=== PATIENT | female | born 1935 | race Caucasian/White ===

== ENCOUNTER 2017-10-13 08:00 | Outpatient (CLI) | payer MEDICARE, OTHER | END 2017-10-13 08:01 | disposition home or self-care (01) | LOC: BICMAMMO 08:00 | PROVIDERS: ATTEND Obstetrics & Gynecology | DX: Z12.31 Encounter for screening mammogram for malignant neoplasm of breast (principal) | CPT/HCPCS: 77063; G0202; 77067 ==

== ENCOUNTER 2017-10-18 10:04 | Outpatient (CLI) | payer MEDICARE, OTHER ==
[2017-10-18] MEDS ORDERED: Iopamidol 370 76% 100 ML VIAL ONE (11:47)
--- NOTE | 2017-10-18 13:34 | CT ---
CT ABDOMEN AND PELVIS WITH IV AND ORAL CONTRAST: History: Left lower quadrant pain. Comparison: 09-08-07 FINDINGS: Mild atelectasis is present at the lung bases. The gallbladder is surgically absent with associated d istention of the biliary system. Cysts arise from the cortex of each kidney. There are prominent dege nerative changes of the lumbar spine. Calcifications are apparent throughout the arterial structures. No evidence of bowel obstruction. Urinary bladder is incompletely distended. Diverticula arise from the colon without adjacent inflammation. IMPRESSION: 1. Mild diverticulosis. No evidence of diverticulitis. 2. Atherosclerosis. 3. Status post cholecystectomy. POS: [facility]
== END 2017-10-18 10:05 | disposition home or self-care (01) ==
LOC: CT 10:04
PROVIDERS: ATTEND Internal Medicine Gastroenterology
DX: K58.1 Irritable bowel syndrome with constipation (principal); K86.2 Cyst of pancreas; R10.9 Unspecified abdominal pain; K57.30 Diverticulosis of large intestine without perforation or abscess without bleeding; I70.90 Unspecified atherosclerosis; Z90.49 Acquired absence of other specified parts of digestive tract
CPT/HCPCS: 74177

== ENCOUNTER 2018-04-19 09:00 | Outpatient (CLI) | payer MEDICARE, OTHER | END 2018-04-19 09:01 | disposition home or self-care (01) | LOC: CP 09:00 | PROVIDERS: ATTEND Internal Medicine | DX: R06.09 Other forms of dyspnea (principal); J44.9 Chronic obstructive pulmonary disease, unspecified | CPT/HCPCS: 94060; 94729 ==

== ENCOUNTER 2018-09-25 04:59 | Observation (INO) | payer MEDICARE, OTHER ==
[2018-09-25 06:21] LABS: Troponin I 0.022 ng/mL (< 0.028)
[2018-09-25] MEDS ORDERED: Acetaminophen 325 MG TAB ONE ×2 (08:40→14:57)
[2018-09-25] MEDS ORDERED: Nitroglycerin 0.4 MG TAB (25 Tab Bottle) SL PRN (08:47)
[2018-09-25] MEDS ORDERED: Diabetic Tussin 200 MG/10 ML UDCUP PO PRN (08:47)
[2018-09-25] MEDS ORDERED: Bisacodyl 10 MG SUPP PR PRN (08:47)
[2018-09-25] MEDS ORDERED: Ondansetron ODT 4 MG TAB PO PRN (08:47)
[2018-09-25] MEDS ORDERED: Sodium Chloride 0.65% Nasal 44 ML BOT EA NARE PRN (08:47)
[2018-09-25] MEDS ORDERED: Zolpidem Tartrate 5 MG TAB PO PRN (08:47)
[2018-09-25] MEDS ORDERED: Cepastat Lozenges 1 LOZ PO PRN (08:47)
[2018-09-25] MEDS ORDERED: Ondansetron PF 4 MG/2 ML Vial IVP PRN (08:47)
[2018-09-25] MEDS ORDERED: Loperamide HCl 2 MG CAP PO PRN (08:47)
[2018-09-25] MEDS ORDERED: Artificial Tears 18 DROP/0.9 ML EA EYE PRN (08:47)
[2018-09-25] MEDS ORDERED: Eucerin (Mineral Oil/Petrolatum,White) 30 gm Jar TOP PRN (08:47)
[2018-09-25] MEDS ORDERED: Calcium Carbonate 500 MG ChewTAB PO PRN (08:47)
[2018-09-25] MEDS ORDERED: Senokot S 8.6-50 MG TAB PO PRN (08:47)
[2018-09-25] MEDS ORDERED: hydrALAZINE 20 MG/ML VIAL SLOW IVP PRN (08:47)
[2018-09-25] MEDS ORDERED: Lisinopril 2.5 MG TAB PO SCH (09:00)
[2018-09-25 09:18] LABS: Troponin I 0.017 ng/mL (< 0.028)
[2018-09-25] MEDS ORDERED: Primidone 250 MG TAB PO SCH (10:15)
[2018-09-25] MEDS ORDERED: Fenofibrate Nanocrystallized 145 MG TAB PO SCH (10:15)
[2018-09-25] MEDS ORDERED: Lisinopril 5 MG TAB PO SCH (10:15)
[2018-09-25] MEDS ORDERED: Enoxaparin Sodium 30 MG/0.3 ML SYRINGE ONE (12:10)
--- NOTE | 2018-09-25 12:16 | HP ---
PRIMARY CARE PHYSICIAN: Mikaela Caraballo. REASON FOR ADMISSION: Transfer from [facility] for congestive heart failure exacerb ation. HISTORY OF PRESENT ILLNESS: An 83-year-old female who has underlying history of obstructive lung dis ease as well as atrial fibrillation with pacemaker/AICD who presented to [facility] with increasing shortness of breath. For last 3 days, he was having orthopnea. She denies any lower extremity pitting edema. She denies any fever, chills, UTI symptoms. She denies any chest pain, bu t she was feeling mild palpitation with exertion. She was feeling dizziness at home. All these symp toms were not improving at home and it was getting worse and that is [facility] At [facility], the patient had EKG which showed pacemak er rhythm. Chest x-ray showed some congestive heart failure. She was given Lasix and DuoNeb therapy and subsequently, she was transferred to our hospital for further evaluation. This patient reports that she never had any recent echocardiography done. She denies any UTI symptoms. She denies any constipation, diarrhea, melena, hematochezia. She denie s any abdominal pain. REVIEW OF SYSTEMS: The following complete review of systems was negative, unless otherwise mentioned in the HPI or below: Constitutional: Weight loss or gain, ability to conduct usual activities. Skin: Rash, itching. Eyes: Double vision, pain. ENT/Mouth: Nose bleeding, neck stiffness, pain, tenderness. Cardiovascular: Palpitations, dyspnea on exertion, orthopnea. Respiratory: Shortness of breath, wheezing, cough, hemoptysis, fever or night sweats. Gastrointestinal: Poor appetite, abdominal pain, heartburn, nausea, vomiting, constipation, or diarr hea. Genitourinary: Urgency, frequency, dysuria, nocturia. Musculoskeletal: Pain, swelling. Neurologic/Psychiatric: Anxiety, depression. Allergy/Immunologic: Skin rash, bleeding tendency. Please see my HPI for pertinent positive and negative. All other review of system reviewed and negat malcolm except as mentioned in the HPI. PAST MEDICAL HISTORY: Dyslipidemia, hypertension, paroxysmal atrial fibrillation, history of pacemak er/AICD, essential tremor. PAST SURGICAL HISTORY: Appendicectomy, pacemaker/defibrillator placement, cholecystectomy, tonsillec cezra, surgical treatment for kidney stone. PAST PSYCHIATRIC HISTORY: Reviewed and negative. FAMILY HISTORY: No family history of coronary artery disease, stroke, or cancer. ALLERGIES: CODEINE, the patient is not tolerating those medications. CURRENT HOME MEDICATIONS: Aspirin 81 mg p.o. daily, calcium with vitamin D 1 tablet p.o. daily, Core g 6.25 mg p.o. b.i.d., TriCor 145 mg p.o. daily, multivitamin 1 tablet p.o. daily, lisinopril 5 mg p. o. b.i.d., Lovaza 1 g p.o. daily, omeprazole 20 mg p.o. daily, primidone 50 mg p.o. b.i.d., vitamin B complex 1 capsule daily. EMERGENCY ROOM COURSE: The patient was given Lasix 40 mg and DuoNeb therapy at [facility]. SOCIAL HISTORY: Patient lives at home. No history of tobacco, alcohol or illicit drug abuse. PHYSICAL EXAMINATION: VITAL SIGNS: Currently, blood pressure 177/88, pulse 74, respiratory rate 22, temperature 97.9, satu ration 98% on 2 L oxygen, weight 47.6 kilograms. GENERAL: Patient is currently alert, awake, no obvious acute distress. HEENT: Normocephalic, atraumatic. Eyes: Pupils round, reactive to light. Extraocular muscle intac t. ENT: Oropharynx within normal limits. Moist mucous membrane, no oral lesion, no pharyngeal erythema , no exudate. NECK: Supple, no obvious JVD noted. No carotid bruit. LUNGS: Few end-expiratory wheezing heard. Basal rales noted. CARDIAC: S1, S2 regular without any significant murmur. ABDOMEN: Soft and benign without any tenderness. No peritoneal sign, no suprapubic tenderness. No organomegaly, no mass. BACK: Unremarkable, no CVA tenderness. EXTREMITIES: Upper extremity, passive movement of all joints are normal. Lower extremities, no jermaine a. Good distal pulsations. No calf tenderness. SKIN: No skin rash. HEMATOLOGICAL: No lymphadenopathy. PSYCHIATRIC: Normal affect. SIGNIFICANT LABORATORY DATA: EKG showing pacemaker rhythm. Chest x-ray done at the [facility] showed pulmonary vascular congestion. CBC: WBC 7.3, hemoglobin 12.2, platelet 220. BMP : Sodium 140, potassium 4.3, chloride 104, carbon dioxide 26, BUN 38, creatinine 1.38, glucose 119, calcium 9.8. LFT: AST 28, ALT 14, alkaline phosphatase 55, albumin 4.5. Cardiac enzymes negative x 3. BNP 1376. Digoxin level 0.15. ASSESSMENT AND PLAN: 1. Acute congestive heart failure. Patient's clinical presentation, dyspnea on exertion, orthopnea, and elevated BNP and pulmonary vascular congestion supportive of congestive heart failure. Patient already had pulmonary function test in the recent past which showed obstructive and restrictive patte rn. She might have underlying component of lung as well but mainly currently explained by congestive heart failure. To determine type of congestive heart failure, we will obtain echocardiography to as sess ejection fraction and other structural abnormality. Meanwhile, we will continue with Lasix 20 m g IV b.i.d. We will start Coreg 3.125 mg p.o. b.i.d., lisinopril 2.5 mg p.o. daily. Once we verify the patient's home medication, then we will resume her home medication. We will monitor electrolytes , renal function, weight, input and output chart. Heart failure education given. 2. Obstructive lung disease/chronic obstructive pulmonary disease asthma. The patient will be given DuoNeb therapy every 6 hourly and Dulera two puff inhalation b.i.d. 3. Benign essential tremor. Continue Primidone 50 mg p.o. b.i.d. 4. Dyslipidemia. Check lipid profile tomorrow and continue TriCor 145 mg p.o. daily after confirmat ion of dose. 5. Gastroesophageal reflux disease. Continue Pepcid 20 mg p.o. daily 6. Chronic kidney disease stage 3. We will monitor renal function. 7. Mild protein calorie malnutrition. The patient will be given nutritional supplement with Ensure b.i.d. 8. Deep venous thrombosis prophylaxis. Lovenox 30 mg subcutaneously daily. 9. Gastrointestinal prophylaxis, Pepcid 20 mg daily. CODE STATUS: The patient is FULL CODE. The patient does not have any surrogate decision maker. DISPOSITION PLAN: Based on clinical course. Most likely within 24 hours, the patient will be able t o go home on stable home medications. We will repeat labs tomorrow and cardiac rehabilitation will b e consulted.
[2018-09-25] MEDS ORDERED: Famotidine 20 MG TAB ONE (12:38)
[2018-09-25] MEDS ORDERED: Primidone 50 MG TAB PO SCH (12:45)
[2018-09-25 15:42] VITALS: BMI 20.4
[2018-09-25] MEDS: Carvedilol 3.125 MG TAB PO SCH ×2 (17:45→21:16)
[2018-09-25] MEDS: Aspirin 325 MG TAB PO SCH (17:45)
[2018-09-25] MEDS: Famotidine 20 MG TAB PO SCH (17:46)
[2018-09-25] MEDS: Enoxaparin Sodium 30 MG/0.3 ML SYRINGE SC SCH (17:46)
[2018-09-25] MEDS: Furosemide 20 MG/2 ML VIAL SLOW IVP SCH (17:52)
[2018-09-25] MEDS ORDERED: Lorazepam 0.5 MG TAB PO PRN (19:15)
[2018-09-25] MEDS: Mometasone/Formoterol 120 PUFF INHALER INH SCH (20:19)
[2018-09-25] MEDS ORDERED: Prevnar 13-Val Conj/PF 0.5 ML SYRINGE IM ONE (21:00)
[2018-09-25] MEDS: Acetaminophen 325 MG TAB PO PRN (21:03)
[2018-09-25] MEDS: Lisinopril 10 MG TAB PO SCH (21:16)
[2018-09-26 04:55] LABS: ALT (SGPT) 12 U/L (8-55); AST (SGOT) 25 U/L (5-34); Albumin 4.3 g/dL (3.4-4.8); Alkaline Phosphatase 46 U/L (40-150); Anion Gap 12 mmol/L (10-20); BUN (Urea Nitrogen) 33 mg/dL (9.8-20.1); Bilirubin, Total 0.6 mg/dL (0.2-1.2); Calc. Creatinine Clearance 24 mL/min (70-130); Calcium 9.5 mg/dL (7.8-10.44); Carbon Dioxide 30 mmol/L (23-31); Chloride 101 mmol/L (98-107); Estimated GFR-MDRD 42; Globulin 2.5 g/dL (2.4-3.5); Glucose 82 mg/dL (83-110); Magnesium 2.2 mg/dL (1.6-2.6); Potassium 3.3 mmol/L (3.5-5.1); Protein, Total 6.8 g/dL (6.0-8.3); Sodium 140 mmol/L (136-145); Uric Acid 8.7 mg/dL (2.6-6.0)
[2018-09-26 04:57] LABS: Band 3 % (5-11); Eosinophils 9 % (0-10); Hemoglobin 12.9 g/dL (12.0-16.0); Lymphocytes 31 % (21-51); MDiff Complete? YES; Mean Corpuscular HGB CONC 33.6 g/dL (32.0-36.0); Mean Corpuscular Hemoglobin 32.1 pg (27.0-31.0); Mean Corpuscular Volume 95.5 fL (78.0-98.0); Mean Platelet Volume 9.6 fL (7.4-10.4); Monocytes 14 % (0-10); Neutrophil 43 % (42-75); Platelet Count 217 thou/uL (130-400); RBC Distribution Width 12.1 % (11.5-14.5); Red Blood Cell (RBC) Count 4.02 mill/uL (4.20-5.40); White Blood Cell (WBC) Count 4.8 thou/uL (4.8-10.8)
[2018-09-26] MEDS: Furosemide 20 MG/2 ML VIAL SLOW IVP SCH ×2 (06:42→13:35)
[2018-09-26] MEDS: Mometasone/Formoterol 120 PUFF INHALER INH SCH (08:07)
[2018-09-26] MEDS: Enoxaparin Sodium 30 MG/0.3 ML SYRINGE SC SCH (08:33)
[2018-09-26] MEDS: Aspirin 325 MG TAB PO SCH (08:33)
[2018-09-26] MEDS: Lisinopril 10 MG TAB PO SCH (08:33)
[2018-09-26] MEDS: Carvedilol 3.125 MG TAB PO SCH (08:33)
[2018-09-26] MEDS: Famotidine 20 MG TAB PO SCH (08:35)
[2018-09-26] MEDS ORDERED: Carvedilol 3.125 MG TAB PO SCH (10:15)
[2018-09-26] MEDS: Acetaminophen 325 MG TAB PO PRN (13:35)
[2018-09-26 15:51] VITALS: BP 133/70; TEMP 98
--- NOTE | 2018-09-27 06:02 | DIS ---
DATE OF ADMISSION: 09/25/2018 DATE OF DISCHARGE: 09/26/2018 DISCHARGE DIAGNOSES: 1. Acute congestive heart failure with combined systolic and diastolic dysfunction. 2. Cardiomyopathy with an ejection fraction of 35% to 40%. 3. Piwfvfkb-ca-ploxdz aortic regurgitation. 4. Jaumgfio-yy-kydpog mitral regurgitation. 5. Chronic obstructive pulmonary disease. 6. History of benign essential tremor. 7. History of dyslipidemia. 8. History of reflux. 9. History of chronic kidney disease, stage 3. 10. History of mild protein-calorie malnutrition. 11. History of atrial fibrillation with pacemaker and automatic implantable cardioverter defibrillator placement. PROCEDURE: Echocardiogram revealing estimated EF at 35% to 40%, diastolic dysfunction, pacer wires visualized in the right ventricle, moderate dilatation of the left atrium, iydixacz-wr-grnyua mitral regurgitation, vrxhjsil-vu-xktgkd aortic regurgitation. HISTORY OF PRESENT ILLNESS: The patient is an 83-year-old followed by Dr. Dorsey and Mikaela Caraballo PA-C. The patient was transferred from the [facility] with shortness of breath symptoms. Chest x-ray initially showed some congestive heart failure with pulmonary edema. She was given Lasix. She was also given DuoNeb for COPD and subsequently transferred to our facility. The patient was diagnosed with likely congestive heart failure. HOSPITAL COURSE: The patient was placed on observation. She was given Lasix 20 mg IV b.i.d. She was resumed on PAOLO inhibitors and beta-blockers. The patient had substantial improvement with a brief round of diuresis. I talked to her obgyn hospitalist physician, Dr. Dorsey. He recalled that this patient had significant aortic valvular disease, but has not been interested in pursuing any aggressive interventions. With our discussion, the patient was felt to be stable for discharge to home. PHYSICAL EXAMINATION: VITAL SIGNS: On the day of discharge, temperature was 98.0, pulse 74, respirations 20, O2 saturation 95% on room air, and blood pressure 133/70. GENERAL APPEARANCE: Age-appropriate female, awake, alert, in no distress. HEART: Regular without murmurs. LUNGS: Clear to auscultation bilaterally. ABDOMEN: Soft, nontender, and nondistended. EXTREMITIES: Warm and dry without edema. LABORATORY DATA: Notable labs on the day of discharge include a creatinine of 1.22, uric acid slightly elevated at 8.7. DISPOSITION: The patient was discharged to home. ACTIVITIES: As tolerated. DIET: She will be on a heart-healthy, low-sodium diet which I discussed with the patient at length. DISCHARGE MEDICATIONS: She also will be on Lasix 20 mg every other day and she will continue with her usual home medications to include; 1. Carvedilol 6.25 mg p.o. b.i.d. 2. Aspirin 81 mg p.o. at bedtime. 3. Daily vitamin. 4. Vitamin B complex. 5. Fenofibrate 145 mg daily. 6. Campbell-3 fatty acids in the form of Lovaza 1 g p.o. daily. 7. Lisinopril 10 mg b.i.d. 8. Primidone 50 mg b.i.d. 9. Calcium with vitamin D 1 p.o. daily. 10. Omeprazole 20 mg daily. FOLLOWUP: She is to follow up with Mikaela Caraballo PA-C, in [place] and Dr. Dorsey on 10/03/2018 at 8:45 in the morning. She needs to have a BMP obtained at that time to ensure her electrolytes remain stable given her newly added diuretic and her chronic kidney disease. The patient is to return to the emergency department should she have any problems prior to the time of followup. Job ID: [id number]
--- NOTE | 2018-09-30 14:27 | EKG ---
Test Reason : Blood Pressure : / mmHG Vent. Rate : 073 BPM Atrial Rate : 073 BPM P-R Int : 102 ms QRS Dur : 146 ms QT Int : 444 ms P-R-T Axes : 102 -70 106 degrees QTc Int : 489 ms Electronic ventricular pacemaker Confirmed by STEPHENIE KOROMA MD ([id number]), design editor KATY PATEL ([id number]) on 09/30/2018 2:27:12 PM Referred By: Confirmed By:STEPHENIE KOROMA MD
== END 2018-09-26 16:51 | disposition home or self-care (01) ==
LOC: ERS 04:59 → ERHOLD 05:32 → 2SW 15:34
PROVIDERS: ADMIT Hospitalist; ATTEND Hospitalist
DX: I13.0 Hypertensive heart and chronic kidney disease with heart failure and stage 1 through stage 4 chronic kidney disease, or unspecified chronic kidney disease (principal); N18.3 Chronic kidney disease, stage 3 (moderate); I50.41 Acute combined systolic (congestive) and diastolic (congestive) heart failure; J44.9 Chronic obstructive pulmonary disease, unspecified; I48.0 Paroxysmal atrial fibrillation; G25.0 Essential tremor; E78.5 Hyperlipidemia, unspecified; K21.9 Gastro-esophageal reflux disease without esophagitis; I08.0 Rheumatic disorders of both mitral and aortic valves; E44.1 Mild protein-calorie malnutrition; Z68.20 Body mass index [BMI] 20.0-20.9, adult; Z79.82 Long term (current) use of aspirin; Z79.899 Other long term (current) drug therapy; Z88.5 Allergy status to narcotic agent; Z95.810 Presence of automatic (implantable) cardiac defibrillator
CPT/HCPCS: 82962 ×2; 83735; 83880; 84484; 84550; 90670; 93005; 93306; 93798; 94640 ×4; 94664; 96372 ×2; 96374; 96376; 99285; G0009; G0378 ×2; 36415; 36416; 80053; 84443; 85025; 90471; J1650; J1940; J7620

== ENCOUNTER 2019-01-16 09:34 | Outpatient (CLI) | payer MEDICARE, OTHER ==
--- NOTE | 2019-01-16 11:09 | ULT ---
RENAL ULTRASOUND WITH DOPPLER: DATE: 01/16/2019. PROVIDED CLINICAL HISTORY: Chronic kidney disease. FINDINGS: The right kidney measures about 8.8 x 3.8 x 3.6 cm and demonstrates no evidence for hydronephrosis or solid mass. Simple-appearing cysts are seen, the largest of which measures about 1.6 cm. Left kidney measures about 8.9 x 4.2 x 4.2 cm and demonstrates no evidence for hydronephrosis or richard d mass. Simple-appearing cysts are seen, the largest of which measures about 2.9 cm. Color Doppler and spectral analysis of the abdominal aorta, right and left main renal arteries, and a rcuate renal arteries was performed bilaterally. There is no elevation of the renal artery peak syst olic velocity to aortic peak systolic velocity ratio to suggest renal artery stenosis. The main ivana l artery waveforms appear normal. The resistive indices within the arcuate systems bilaterally are n ormal. The urinary bladder appears sonographically unremarkable. IMPRESSION: 1. No evidence for hydronephrosis. 2. No sonographic evidence for renal artery stenosis. POS: OFF
== END 2019-01-16 09:35 | disposition home or self-care (01) ==
LOC: BICULT 09:34
PROVIDERS: ATTEND Internal Medicine Nephrology
DX: N18.3 Chronic kidney disease, stage 3 (moderate) (principal)
CPT/HCPCS: 76700; 76770

== ENCOUNTER 2019-04-07 14:00 | Observation (INO) | payer MEDICARE, OTHER ==
[2019-04-07] MEDS ORDERED: Acetaminophen 325 MG TAB PO PRN ×2 (15:14→17:41)
[2019-04-07] MEDS ORDERED: Ondansetron PF 4 MG/2 ML Vial IVP PRN ×2 (15:14→17:41)
[2019-04-07] MEDS ORDERED: Ondansetron ODT 4 MG TAB SL PRN (15:14)
[2019-04-07] MEDS ORDERED: Acetaminophen 325 MG TAB ONE ×2 (15:45)
[2019-04-07 16:14] LABS: Troponin I 0.049 ng/mL (< 0.028)
--- NOTE | 2019-04-07 16:20 | HP ---
PRIMARY CARE PHYSICIAN: Mikaela Caraballo. PRIMARY DB2 DBA: Dr. Dorsey. REASON FOR ADMISSION: Transferred from [facility] for chest pain. HISTORY OF PRESENT ILLNESS: An 83-year-old female, who has underlying history of systolic and diastolic heart failure, who initially presented at [place] [facility] with complaint of chest pain. The patient reports that this morning she was perfect early normal, she was going to [place], [place]. She was having difficulty riding truck. She was finally made to seat on the backside of seat, her son was driving. After 5 minutes of driving, the patient experienced left-sided chest pain, sharp, pressure-like sensation, radiation to left arm, 7/10 in intensity. She also felt shoulder pain lasted for about 30 to 45 minutes. The patient felt nausea, but no vomiting. She did not have any associated diaphoresis or shortness of breath. Subsequently, the patient's son took her to [facility], but when they reached there at that time, her pain eased up and eventuality subsided and never came back. She denies any relation of chest pain with food, respiration, or activity. She is able to do every day routine activity without any shortness of breath or chest pain. She denies any fever or chills. She denies any hemoptysis. She denies any immobilization, calf tenderness, or lower extremity edema. The patient is doing her routine activity at slow pace without any problem. When she reached to [facility], she was hypertensive. At [facility], routine blood test was unremarkable. She was given nitroglycerin patch, aspirin, and Ringer lactate IV fluid. EKG showed pacemaker rhythm. Subsequently, this patient was transferred to our emergency room for evaluation. The patient is currently asymptomatic. She had bad experience with previous stress test. She does not want to go for stress test if not needed. She denies any constipation, diarrhea, melena, hematochezia, or abdominal pain. REVIEW OF SYSTEMS: CONSTITUTIONAL: Negative for weight loss or gain, ability to conduct usual activities. SKIN: Negative for rash, itching. EYES: Negative for double vision, pain. ENT/MOUTH: Negative for nose bleeding, neck stiffness, pain, tenderness. CARDIOVASCULAR: Negative for palpitations, dyspnea on exertion, orthopnea. RESPIRATORY: Negative for shortness of breath, wheezing, cough, hemoptysis, fever or night sweats. GASTROINTESTINAL: Negative for poor appetite, abdominal pain, heartburn, nausea, vomiting, constipation, or diarrhea. GENITOURINARY: Negative for urgency, frequency, dysuria, nocturia. MUSCULOSKELETAL: Negative for pain, swelling. NEUROLOGIC/PSYCHIATRIC: Negative for anxiety, depression. ALLERGY/IMMUNOLOGIC: Negative for skin rash, bleeding tendency. Please see my HPI for pertinent positives and negatives. All other review of systems reviewed and negative except as mentioned in HPI. PAST MEDICAL HISTORY: Chronic systolic and diastolic heart failure, hypertension, paroxysmal atrial fibrillation, dyslipidemia, history of pacemaker/AICD, benign essential tremor. PAST SURGICAL HISTORY: Pacemaker/defibrillator placement, appendicectomy, cholecystectomy, tonsillectomy, surgical treatment for kidney stones. PAST PSYCHIATRIC HISTORY: Reviewed and negative. FAMILY HISTORY: No strong family history of premature coronary artery disease, stroke, or cancer. ALLERGIES: CODEINE. THE PATIENT IS NOT TOLERATING THIS MEDICATION. EMERGENCY ROOM COURSE: The patient is given Ringer lactate, aspirin, and nitro patch at [facility]. SOCIAL HISTORY: The patient lives at home. No history of tobacco, alcohol, or illicit drug abuse. CURRENT HOME MEDICATIONS: 1. Aspirin 81 mg p.o. at bedtime. 2. Calcium with vitamin D one tablet daily. 3. Coreg 6.25 mg p.o. b.i.d. 4. Tricor 145 mg p.o. daily. 5. Folic acid with multivitamin one tablet daily. 6. Lisinopril 10 mg b.i.d. 7. Omeprazole 20 mg daily. 8. Primidone 50 mg b.i.d. 9. Lasix 20 mg p.o. daily. 10. Fish oil one capsule daily. PHYSICAL EXAMINATION: VITAL SIGNS: On arrival and currently blood pressure 153/90, pulse 70, respiratory rate 18, temperature 98.7, saturation 95% on room air. Weight 44.9 kg. GENERAL: The patient is currently alert, awake, in no obvious acute distress. HEENT: Head; normocephalic and atraumatic. Eyes; pupils round, reactive to light. Extraocular muscle intact. ENT; oropharynx within normal limits. Moist mucous membranes. No oral lesion. No pharyngeal erythema. No exudate. NECK: Supple. No JVD. No thyromegaly. No carotid bruit. No jugular venous distention. LUNGS: Clear to auscultation without any rhonchi or rales. CARDIAC: S1 and S2 appears regular without any significant murmur. ABDOMEN: Soft, bowel sounds present. Nontender. Nondistended. No organomegaly. No mass. No suprapubic tenderness. BACK: Unremarkable. No CVA tenderness. EXTREMITIES: Upper extremity, passive movement of all joints are normal. Lower extremity, no edema. Good distal pulsation. No calf tenderness. SKIN: No skin rash. HEMATOLOGICAL: No lymphadenopathy. NEUROLOGIC: Nonfocal examination. SIGNIFICANT LABORATORY DATA: CBC; WBC 6.1, hemoglobin 12.2, platelet 286, D-dimer 0.70. BMP; sodium 141, potassium 5.1, chloride 103, carbon dioxide 25, anion gap 18, BUN 33, creatinine 1.04, glucose 96, calcium 10.0. LFT; AST 66, ALT 27, alkaline phosphatase 118, albumin 4.4. Troponin I 0.016, lipase 50. EKG showing pacemaker rhythm. Chest x-ray based on my review. No acute cardiopulmonary process. ASSESSMENT/PLAN: 1. Chest pain. The patient's chest pain description is atypical. Her EKG is showing pacemaker rhythm, so inconclusive. Her troponin is negative. At this point given acute onset of chest pain, we will keep this patient in hospital for observation and we will do serial cardiac enzyme. Per the patient's request, if cardiac enzymes are negative then she does not want to go for any kind of stress testing, rather she will prefer outpatient followup with Dr. Dorsey. We will check lipid profile tomorrow. Meanwhile, we will continue with aspirin 325 mg p.o. daily, nitroglycerin patch q.8 hourly. The patient already had recent echocardiography done, so no need of repeat echocardiography during this admission. 2. Chronic systolic and diastolic heart failure. The patient is currently euvolemic. Her chest x-ray is clean. Her examination is normal and her recent echocardiography was in August 2018. The patient is already on optimum medical therapy with Coreg and lisinopril as well as low dose of Lasix. 3. Dyslipidemia. We will check lipid profile and continue with Tricor 145 mg p.o. at bedtime and fish oil 1 gram daily. 4. Benign essential tremor. We will continue Protonix 40 mg p.o. daily. 5. Benign essential tremor. We will continue primidone 50 mg p.o. b.i.d. 6. Deep venous thrombosis prophylaxis not needed, because we are expecting discharge in 24 hours. 7. Gastrointestinal prophylaxis, Protonix 40 mg p.o. daily. CODE STATUS: The patient is full code. The patient's son is surrogate decision maker. DISPOSITION PLAN: Based on clinical course. If the patient's subsequent troponin are abnormal, then they will consider Cardiology consultation while in hospital. Plan of care extensively discussed with the patient in detail in the emergency room. Job ID: [id number]
[2019-04-07 17:18] VITALS: BMI 22.1
[2019-04-07] MEDS ORDERED: Loperamide HCl 2 MG CAP PO PRN (17:41)
[2019-04-07] MEDS ORDERED: hydrALAZINE 20 MG/ML VIAL SLOW IVP PRN (17:41)
[2019-04-07] MEDS ORDERED: Diabetic Tussin 200 MG/10 ML UDCUP PO PRN (17:41)
[2019-04-07] MEDS ORDERED: Senokot S 8.6-50 MG TAB PO PRN (17:41)
[2019-04-07] MEDS ORDERED: Sodium Chloride 0.65% Nasal 44 ML BOT EA NARE PRN (17:41)
[2019-04-07] MEDS ORDERED: Ondansetron ODT 4 MG TAB PO PRN (17:41)
[2019-04-07] MEDS ORDERED: Loratadine 10 MG TAB PO PRN (17:41)
[2019-04-07] MEDS ORDERED: Zolpidem Tartrate 5 MG TAB PO PRN (17:41)
[2019-04-07] MEDS ORDERED: Calcium Carbonate 500 MG ChewTAB PO PRN (17:41)
[2019-04-07] MEDS ORDERED: Bisacodyl 10 MG SUPP PR PRN (17:41)
[2019-04-07] MEDS ORDERED: Artificial Tears 18 DROP/0.9 ML EA EYE PRN (17:41)
[2019-04-07] MEDS ORDERED: Nitroglycerin 0.4 MG TAB (25 Tab Bottle) SL PRN (17:41)
[2019-04-07] MEDS ORDERED: Carvedilol 6.25 MG TAB PO SCH (18:30)
[2019-04-07 19:11] LABS: Troponin I 0.079 ng/mL (< 0.028)
[2019-04-07] MEDS: Lisinopril 10 MG TAB PO SCH (19:54)
[2019-04-07] MEDS: Primidone 50 MG TAB PO SCH (19:54)
[2019-04-07] MEDS: Nitroglycerin 2% Ointment 1 INCH/1 GM Packet TOP SCH (21:15)
[2019-04-08 05:45] LABS: #Basophils 0.1 thou/uL (0.0-0.2); #Eosinphils 0.4 thou/uL (0.0-0.7); #Lymphocytes 1.4 thou/uL (1.20-3.40); #Monocytes 0.8 thou/uL (0.11-0.59); #Neutrophils 2.7 thou/uL (1.40-6.50); %Basophils 1.4 % (0.0-1.0); %Eosinophils 6.8 % (0.0-10.0); %Lymphocytes 26.8 % (21.0-51.0); %Monocytes 14.2 % (0.0-10.0); %Neutrophils 50.8 % (42.0-75.0); Hemoglobin 11.7 g/dL (12.0-16.0); Mean Corpuscular HGB CONC 33.6 g/dL (32.0-36.0); Mean Corpuscular Hemoglobin 32.4 pg (27.0-31.0); Mean Corpuscular Volume 96.4 fL (78.0-98.0); Mean Platelet Volume 8.9 fL (7.4-10.4); Platelet Count 265 thou/uL (130-400); RBC Distribution Width 12.1 % (11.5-14.5); Red Blood Cell (RBC) Count 3.62 mill/uL (4.20-5.40); White Blood Cell (WBC) Count 5.4 thou/uL (4.8-10.8)
[2019-04-08 06:00] LABS: Anion Gap 13 mmol/L (10-20); BUN (Urea Nitrogen) 28 mg/dL (9.8-20.1); Calc. Creatinine Clearance 37 mL/min (70-130); Calcium 9.6 mg/dL (7.8-10.44); Carbon Dioxide 25 mmol/L (23-31); Cardiac Risk 3.7 (Less than 4.5); Chloride 104 mmol/L (98-107); Cholesterol 209 mg/dl (< 200 Desired); Estimated GFR-MDRD 61; Glucose 83 mg/dL (83-110); HDL Cholesterol 56 mg/dL (>60 Neg Risk); LDL Cholesterol, Calculated 114 mg/dL; Potassium 3.8 mmol/L (3.5-5.1); Sodium 138 mmol/L (136-145); Triglycerides 196 mg/dL (Less than 150)
[2019-04-08 06:05] LABS: Troponin I 0.056 ng/mL (< 0.028)
[2019-04-08] MEDS: Nitroglycerin 2% Ointment 1 INCH/1 GM Packet TOP SCH (06:32)
[2019-04-08] MEDS ORDERED: Carvedilol 6.25 MG TAB PO SCH (08:00)
[2019-04-08] MEDS: Primidone 50 MG TAB PO SCH (08:47)
[2019-04-08] MEDS: Lisinopril 10 MG TAB PO SCH (08:48)
[2019-04-08] MEDS ORDERED: Folic Acid 1 MG TAB PO SCH (09:00)
[2019-04-08] MEDS ORDERED: Fenofibrate Nanocrystallized 145 MG TAB PO SCH (09:00)
[2019-04-08] MEDS ORDERED: Multivitamin W/ Minerals 1 TAB PO SCH (09:00)
[2019-04-08] MEDS ORDERED: Furosemide 20 MG TAB PO SCH (09:00)
[2019-04-08] MEDS ORDERED: Aspirin 325 mg Enteric Coated Tablet PO SCH (09:00)
[2019-04-08] MEDS ORDERED: Fish Oil 1,000 MG CAP PO SCH (09:00)
[2019-04-08 11:29] VITALS: BP 132/63; TEMP 98.4
--- NOTE | 2019-04-08 23:59 | DIS ---
DATE OF ADMISSION: 04/07/2019 DATE OF DISCHARGE: 04/08/2019 CHIEF COMPLAINT ON ADMISSION: Chest pain. FINAL DIAGNOSES: 1. Chest pain, secondary to demand ischemia in the setting of accelerated hypertension, peak troponin 0.079. 2. History of dilated cardiomyopathy, status post [employer] biventricular ICD, no occlusive coronary artery disease noted per recent left heart catheterization 2016. 3. Hypertension, with much better control after medication titration this hospitalization. 4. Benign essential tremor. 5. Mixed hyperlipidemia. BRIEF HOSPITAL COURSE: The patient is a very pleasant 83-year-old female with past medical history significant for chronic systolic and diastolic heart failure, managed by Dr. Dorsey, and no history of coronary artery disease, confirmed by left heart catheterization 2016, who presented with an episode of chest pain radiating up into the left arm and shoulder. The patient had been shopping with her son and had just climbing into the backseat of her son's truck. They were going to [place] to shop. After approximately 5 minutes of driving, the patient did begin experiencing chest pain located on the left side of her chest which she describes as pressure with radiation to the left arm. She rated the pain as 7/ 10, and the left shoulder and arm pain lasted about 30 minutes. By the time they arrived to the [facility], her chest pain had resolved. The patient was markedly hypertensive on arrival with systolic blood pressure 200s. She was transferred to our facility for higher level of care. On arrival to our ER, her blood pressure was 180. She was admitted for chest pain rule out. Her serial troponin was 0.016, 0.049, 0.079, and 0.056 respectively. Her carvedilol was increased from 3.125 to 6.25 b.i.d. and her lisinopril was increased from 5 mg daily to 10 mg p.o. b.i.d. Her blood pressure has trended down nicely with readings now in the 130 systolic. She has had no further chest discomfort. She has ambulated the halls without issue. Interrogation of her ICD revealed no arrhythmias or therapies given. DISCHARGE DISPOSITION: Home. DISCHARGE CONDITION: Stable. FOLLOWUP AND DISCHARGE INSTRUCTIONS: The patient will follow up with her primary grain loader, Dr. Dorsey. She will continue to monitor her blood pressure at home. In addition to her new prescriptions for increased doses of carvedilol and lisinopril, she will also be given prescription for sublingual nitroglycerin. Stress test was offered to the patient but in light of her normal left heart catheterization in 2016, this will be deferred. The patient stated that she does not desire any further stress test in any case. The care of this patient was discussed with Dr. Barbosa. She will be discharged in good condition today with followup scheduled with Dr. Dorsey, as well as her primary care physician. Job ID: [id number] [id number]
== END 2019-04-08 13:24 | disposition home or self-care (01) ==
LOC: ERS 14:00 → 2SW 16:33
PROVIDERS: ADMIT Internal Medicine; ATTEND Internal Medicine
DX: I24.8 Other forms of acute ischemic heart disease (principal); I11.0 Hypertensive heart disease with heart failure; I50.42 Chronic combined systolic (congestive) and diastolic (congestive) heart failure; I48.0 Paroxysmal atrial fibrillation; G25.0 Essential tremor; I42.0 Dilated cardiomyopathy; E78.2 Mixed hyperlipidemia; Z79.82 Long term (current) use of aspirin; Z79.899 Other long term (current) drug therapy; Z88.5 Allergy status to narcotic agent; Z95.810 Presence of automatic (implantable) cardiac defibrillator
CPT/HCPCS: 80048; 80061; 84484 ×2; 85025; 99285; G0378 ×2; 36415

== ENCOUNTER 2021-01-29 12:00 | Outpatient (CLI) | payer MEDICARE, OTHER | END 2021-01-29 12:01 | disposition home or self-care (01) | LOC: BICULT 12:00 | PROVIDERS: ATTEND Internal Medicine Nephrology | DX: N18.30 Chronic kidney disease, stage 3 unspecified (principal); N28.1 Cyst of kidney, acquired | CPT/HCPCS: 76770 ==

== ENCOUNTER 2021-06-27 17:22 | Inpatient (IN) | payer MEDICARE, OTHER ==
[2021-06-27 19:25] VITALS: BMI 19.8
[2021-06-27] MEDS ORDERED: Ondansetron ODT 4 MG TAB PO PRN (20:01)
[2021-06-27] MEDS ORDERED: Ondansetron PF 4 MG/2 ML Vial IVP PRN (20:01)
[2021-06-27] MEDS ORDERED: Melatonin 3 MG TAB PO PRN (20:04)
[2021-06-27] MEDS ORDERED: Aspirin Chewable 81 MG TAB PO SCH (20:15)
[2021-06-27] MEDS: hydrALAZINE 20 MG/ML VIAL SLOW IVP PRN (22:14)
[2021-06-27] MEDS ORDERED: Sodium Chloride 0.9% 1,000 ML IV SCH (22:15)
[2021-06-27 23:31] LABS: Troponin I 0.043 ng/mL (< 0.028)
[2021-06-28] MEDS: Acetaminophen 325 MG TAB PO PRN ×2 (00:39→08:28)
[2021-06-28 05:27] LABS: Mean Corpuscular HGB CONC 34.3 g/dL (32.0-36.0); Mean Corpuscular Hemoglobin 33.7 pg (27.0-31.0); Mean Corpuscular Volume 98.1 fL (78.0-98.0); Mean Platelet Volume 9.6 fL (7.4-10.4); Platelet Count 232 thou/uL (130-400); RBC Distribution Width 11.7 % (11.5-14.5); Red Blood Cell (RBC) Count 2.98 mill/uL (4.20-5.40); White Blood Cell (WBC) Count 4.7 thou/uL (4.8-10.8)
[2021-06-28 05:39] LABS: Anion Gap 14 mmol/L (10-20); BUN (Urea Nitrogen) 50 mg/dL (9.8-20.1); Calc. Creatinine Clearance 19 mL/min (70-130); Calcium 8.9 mg/dL (7.8-10.44); Carbon Dioxide 25 mmol/L (23-31); Chloride 104 mmol/L (98-107); Glucose 99 mg/dL (83-110); Potassium 3.7 mmol/L (3.5-5.1); Sodium 139 mmol/L (136-145)
[2021-06-28] MEDS ORDERED: Nitroglycerin 0.4 MG TAB (25 Tab Bottle) ONE (06:26)
[2021-06-28] MEDS ORDERED: Nitroglycerin 0.4 MG TAB (25 Tab Bottle) SL PRN (06:45)
[2021-06-28] MEDS: Aspirin Chewable 81 MG TAB PO SCH (08:28)
[2021-06-28] MEDS: Heparin 5,000 UNITS/ML VIAL SC SCH ×2 (08:29→20:44)
[2021-06-28] MEDS ORDERED: Enoxaparin Sodium 30 MG/0.3 ML SYRINGE SC SCH (09:00)
[2021-06-28] MEDS: hydrALAZINE 20 MG/ML VIAL SLOW IVP PRN (09:02)
[2021-06-28 09:23] LABS: Eosinophils 13 % (0-10); Lymphocytes 20 % (21-51); MDiff Complete? YES; Monocytes 12 % (0-10); Neutrophil 51 % (42-75); Platelet Morphology Comment Appears Adequate; Reactive Lymphocytes 4 % (0-10)
[2021-06-28] MEDS ORDERED: traMADol HCl 50 MG TAB PO PRN ×2 (10:06→14:10)
[2021-06-28] MEDS ORDERED: cloNIDine 0.1 MG TAB PO PRN (10:10)
[2021-06-28] MEDS ORDERED: Carvedilol 6.25 MG TAB PO SCH (10:15)
[2021-06-28] MEDS ORDERED: cloNIDine 0.1 MG TAB PO SCH (10:15)
[2021-06-28 10:53] LABS: Troponin I 0.041 ng/mL (< 0.028)
[2021-06-28] MEDS ORDERED: Fentanyl 100 MCG/2 ML VIAL SLOW IVP SCH (11:45)
[2021-06-28 13:41] LABS: Troponin I 0.032 ng/mL (< 0.028)
[2021-06-28] MEDS ORDERED: Fentanyl 100 MCG/2 ML VIAL SLOW IVP PRN (14:35)
[2021-06-28] MEDS: Isosorbide Dinitrate 5 MG TAB PO SCH ×2 (16:01→20:45)
[2021-06-28] MEDS: Primidone 50 MG TAB PO SCH ×2 (16:01→20:52)
[2021-06-28] MEDS: hydrALAZINE 25 MG TAB PO SCH ×2 (16:01→20:45)
[2021-06-28] MEDS: Carvedilol 6.25 MG TAB PO SCH (16:09)
[2021-06-28] MEDS: cloNIDine 0.1 MG TAB PO SCH (20:45)
[2021-06-29] MEDS: Aspirin Chewable 81 MG TAB PO SCH (08:06)
[2021-06-29] MEDS: cloNIDine 0.1 MG TAB PO SCH (08:06)
[2021-06-29] MEDS: Isosorbide Dinitrate 5 MG TAB PO SCH ×2 (08:06→14:56)
[2021-06-29] MEDS: hydrALAZINE 25 MG TAB PO SCH ×2 (08:07→14:56)
[2021-06-29] MEDS: Heparin 5,000 UNITS/ML VIAL SC SCH (08:07)
[2021-06-29] MEDS: Carvedilol 6.25 MG TAB PO SCH ×3 (08:07→09:39)
[2021-06-29] MEDS: Primidone 50 MG TAB PO SCH ×2 (08:14→14:57)
[2021-06-29] MEDS ORDERED: cloNIDine 0.2 MG TAB PO SCH (09:00)
[2021-06-29] MEDS ORDERED: Multivitamin W/ Minerals 1 TAB PO SCH (09:00)
[2021-06-29] MEDS ORDERED: Fenofibrate Nanocrystallized 145 MG TAB PO SCH (09:00)
[2021-06-29] MEDS ORDERED: cloNIDine 0.3 MG TAB PO SCH ×2 (09:00→21:00)
[2021-06-29] MEDS: Acetaminophen 325 MG TAB PO SCH ×2 (09:39→14:56)
[2021-06-29 11:52] VITALS: TEMP 98.3
[2021-06-29 14:58] VITALS: BP 166/72
[2021-06-29] MEDS ORDERED: Carvedilol 25 MG TAB PO SCH (17:00)
== END 2021-06-29 15:10 | disposition home or self-care (01) | DRG 315 ==
LOC: 2NO 19:03 → OBSVTOIN 06-29 11:53
PROVIDERS: ADMIT Family Medicine; ATTEND Internal Medicine
DX: I95.9 Hypotension, unspecified (principal); I13.0 Hypertensive heart and chronic kidney disease with heart failure and stage 1 through stage 4 chronic kidney disease, or unspecified chronic kidney disease; I50.22 Chronic systolic (congestive) heart failure; N17.9 Acute kidney failure, unspecified; I42.8 Other cardiomyopathies; E44.0 Moderate protein-calorie malnutrition; Z68.1 Body mass index [BMI] 19.9 or less, adult; E78.5 Hyperlipidemia, unspecified; J39.2 Other diseases of pharynx; G89.29 Other chronic pain; I35.1 Nonrheumatic aortic (valve) insufficiency; M54.9 Dorsalgia, unspecified; N18.30 Chronic kidney disease, stage 3 unspecified; Z20.822 Contact with and (suspected) exposure to COVID-19; R07.9 Chest pain, unspecified; I48.0 Paroxysmal atrial fibrillation; Z95.810 Presence of automatic (implantable) cardiac defibrillator; Z88.5 Allergy status to narcotic agent; Z79.82 Long term (current) use of aspirin; Z90.49 Acquired absence of other specified parts of digestive tract; Z90.89 Acquired absence of other organs
CPT/HCPCS: 36415; 36416; 74019; 80048; 83735; 84484; 85025; 93005; 93010; 93306; 96374; 96375; 96376; G0378; J0360; J1644; J3010; J7050

== ENCOUNTER 2021-12-02 18:01 | Inpatient (IN) | payer MEDICARE, OTHER ==
[2021-12-02 18:50] LABS: #Eosinphils 0.2 thou/uL (0.0-0.7); #Lymphocytes 0.9 thou/uL (1.20-3.40); #Monocytes 1.1 thou/uL (0.11-0.59); #Neutrophils 6.2 thou/uL (1.40-6.50); %Basophils 0.5 % (0.0-1.0); %Lymphocytes 10.9 % (21.0-51.0); %Monocytes 13.2 % (0.0-10.0); %Neutrophils 73.4 % (42.0-75.0); Hemoglobin 9.8 g/dL (12.0-16.0); Mean Corpuscular Volume 97.2 fL (78.0-98.0); Mean Platelet Volume 8.5 fL (7.4-10.4); Platelet Count 257 thou/uL (130-400); RBC Distribution Width 12.4 % (11.5-14.5); Red Blood Cell (RBC) Count 2.98 mill/uL (4.20-5.40); White Blood Cell (WBC) Count 8.4 thou/uL (4.8-10.8)
[2021-12-02 19:10] LABS: ALT (SGPT) 13 U/L (8-55); AST (SGOT) 36 U/L (5-34); Anion Gap 16 mmol/L (10-20); BUN (Urea Nitrogen) 39 mg/dL (9.8-20.1); Bilirubin, Total 0.5 mg/dL (0.2-1.2); Calc. Creatinine Clearance 0 mL/min (70-130); Calcium 9.3 mg/dL (7.8-10.44); Carbon Dioxide 23 mmol/L (23-31); Chloride 105 mmol/L (98-107); Globulin 3.1 g/dL (2.4-3.5); Glucose 99 mg/dL (83-110); Potassium 4.8 mmol/L (3.5-5.1); Protein, Total 7.1 g/dL (5.8-8.1); Sodium 139 mmol/L (136-145)
[2021-12-02 19:33] LABS: CKMB 2.1 ng/mL (0-6.6)
[2021-12-02 19:43] LABS: Alkaline Phosphatase 73 U/L (40-110)
[2021-12-02] MEDS ORDERED: Benzonatate 100 MG CAP PO SCH (20:45)
[2021-12-02] MEDS ORDERED: Ondansetron ODT 4 MG TAB PO PRN (22:00)
[2021-12-02] MEDS ORDERED: Ondansetron PF 4 MG/2 ML Vial IVP PRN (22:00)
[2021-12-02] MEDS ORDERED: Acetaminophen 650 MG Suppository PR PRN (22:00)
[2021-12-02] MEDS ORDERED: Furosemide 40 MG/4 ML VIAL SLOW IVP SCH (22:15)
[2021-12-02] MEDS ORDERED: Erythromycin Base 0.5% Oint 1 GM TUBE R EYE SCH (22:22)
[2021-12-02 22:33] LABS: Troponin I 0.047 ng/mL (< 0.028)
[2021-12-02] MEDS ORDERED: methylPREDNISolone Sod Succ 40 MG VIAL IVP SCH (22:45)
[2021-12-03 01:24] LABS: Troponin I 0.057 ng/mL (< 0.028)
[2021-12-03] MEDS: Acetaminophen 325 MG TAB PO PRN ×2 (03:40→21:02)
[2021-12-03 05:21] LABS: #Lymphocytes 0.6 thou/uL (1.20-3.40); #Monocytes 0.8 thou/uL (0.11-0.59); #Neutrophils 5.8 thou/uL (1.40-6.50); %Basophils 0.1 % (0.0-1.0); %Eosinophils 0.2 % (0.0-10.0); %Lymphocytes 8.2 % (21.0-51.0); %Monocytes 11.3 % (0.0-10.0); %Neutrophils 80.1 % (42.0-75.0); Hemoglobin 9.4 g/dL (12.0-16.0); Mean Corpuscular HGB CONC 33.6 g/dL (32.0-36.0); Mean Corpuscular Hemoglobin 33.1 pg (27.0-31.0); Mean Corpuscular Volume 98.5 fL (78.0-98.0); Mean Platelet Volume 8.9 fL (7.4-10.4); Platelet Count 262 thou/uL (130-400); RBC Distribution Width 12.3 % (11.5-14.5); Red Blood Cell (RBC) Count 2.85 mill/uL (4.20-5.40); White Blood Cell (WBC) Count 7.2 thou/uL (4.8-10.8)
[2021-12-03 05:45] LABS: Anion Gap 14 mmol/L (10-20); BUN (Urea Nitrogen) 37 mg/dL (9.8-20.1); Calc. Creatinine Clearance 18 mL/min (70-130); Calcium 8.9 mg/dL (7.8-10.44); Carbon Dioxide 27 mmol/L (23-31); Chloride 103 mmol/L (98-107); Glucose 109 mg/dL (83-110); Potassium 3.7 mmol/L (3.5-5.1); Sodium 140 mmol/L (136-145)
[2021-12-03] MEDS: hydrALAZINE 25 MG TAB PO SCH ×3 (08:45→21:01)
[2021-12-03] MEDS: Aspirin Chewable 81 MG TAB PO SCH (08:45)
[2021-12-03] MEDS: Enoxaparin Sodium 30 MG/0.3 ML SYRINGE SC SCH (08:45)
[2021-12-03] MEDS: guaiFENesin ER 600 MG TAB PO SCH ×2 (08:45→21:01)
[2021-12-03] MEDS: Isosorbide Dinitrate 5 MG TAB PO SCH ×3 (08:45→21:01)
[2021-12-03] MEDS: Torsemide 10 MG TAB PO SCH (08:45)
[2021-12-03] MEDS ORDERED: methylPREDNISolone Sod Succ 40 MG VIAL IVP SCH (09:00)
[2021-12-03] MEDS ORDERED: Torsemide 20 MG TAB PO SCH (09:00)
[2021-12-03] MEDS ORDERED: Non-Formulary Item 1 EACH (Isosorbide Dinitrate [Isordil] 10 MG Tab) PO SCH (09:00)
[2021-12-03 10:48] VITALS: BMI 16.7
[2021-12-03 12:27] LABS: SARS-CoV-2 PCR by NAA Not Detected (NotDetected)
[2021-12-03] MEDS: cefTRIAXone\\ROCEPHIN 1 GM in Sodium Chloride 0.9% 100 ML IVPB SCH (16:10)
[2021-12-03] MEDS: Erythromycin Base 0.5% Oint 1 GM TUBE R EYE PRN ×2 (16:11→21:11)
[2021-12-03] MEDS ORDERED: Aspirin 81 mg Enteric Coated Tablet PO SCH (21:00)
[2021-12-03] MEDS ORDERED: Melatonin 3 MG TAB PO PRN (23:45)
[2021-12-04] MEDS: Benzonatate 100 MG CAP PO PRN ×2 (03:54→17:23)
[2021-12-04] MEDS: Erythromycin Base 0.5% Oint 1 GM TUBE R EYE PRN ×2 (03:55→16:13)
[2021-12-04] MEDS ORDERED: predniSONE 20 MG TAB PO SCH (08:00)
[2021-12-04 08:43] LABS: #Eosinphils 0.2 thou/uL (0.0-0.7); #Lymphocytes 1.2 thou/uL (1.20-3.40); #Monocytes 1.2 thou/uL (0.11-0.59); #Neutrophils 5.7 thou/uL (1.40-6.50); %Basophils 0.3 % (0.0-1.0); %Eosinophils 2.4 % (0.0-10.0); %Lymphocytes 14.8 % (21.0-51.0); %Monocytes 14.1 % (0.0-10.0); %Neutrophils 68.4 % (42.0-75.0); Hemoglobin 10.2 g/dL (12.0-16.0); Mean Corpuscular HGB CONC 33.1 g/dL (32.0-36.0); Mean Corpuscular Hemoglobin 32.6 pg (27.0-31.0); Mean Corpuscular Volume 98.6 fL (78.0-98.0); Mean Platelet Volume 8.3 fL (7.4-10.4); Platelet Count 364 thou/uL (130-400); RBC Distribution Width 12.1 % (11.5-14.5); Red Blood Cell (RBC) Count 3.13 mill/uL (4.20-5.40); White Blood Cell (WBC) Count 8.3 thou/uL (4.8-10.8)
[2021-12-04] MEDS: guaiFENesin ER 600 MG TAB PO SCH (08:55)
[2021-12-04] MEDS: Aspirin Chewable 81 MG TAB PO SCH (08:55)
[2021-12-04] MEDS: Torsemide 10 MG TAB PO SCH (08:55)
[2021-12-04] MEDS: hydrALAZINE 25 MG TAB PO SCH ×2 (08:55→16:13)
[2021-12-04] MEDS: Isosorbide Dinitrate 5 MG TAB PO SCH ×2 (08:55→16:13)
[2021-12-04] MEDS: Enoxaparin Sodium 30 MG/0.3 ML SYRINGE SC SCH (08:55)
[2021-12-04 08:58] LABS: Anion Gap 14 mmol/L (10-20); BUN (Urea Nitrogen) 40 mg/dL (9.8-20.1); Calc. Creatinine Clearance 16 mL/min (70-130); Calcium 9.2 mg/dL (7.8-10.44); Carbon Dioxide 26 mmol/L (23-31); Chloride 103 mmol/L (98-107); Glucose 89 mg/dL (83-110); Potassium 4.1 mmol/L (3.5-5.1); Sodium 139 mmol/L (136-145)
[2021-12-04] MEDS ORDERED: Azithromycin 250 MG TAB PO SCH (09:00)
[2021-12-04] MEDS: cefTRIAXone\\ROCEPHIN 1 GM in Sodium Chloride 0.9% 100 ML IVPB SCH (16:13)
[2021-12-04 16:24] VITALS: BP 160/88; TEMP 98.2
== END 2021-12-04 19:20 | disposition home or self-care (01) | DRG 189 ==
LOC: ERS 18:01 → 2NO 20:22 → OBSVTOIN 12-03 15:32
PROVIDERS: ADMIT Student in an Organized Health Care Education/Training Program; ATTEND Hospitalist
DX: J96.21 Acute and chronic respiratory failure with hypoxia (principal); I21.A1 Myocardial infarction type 2; I13.0 Hypertensive heart and chronic kidney disease with heart failure and stage 1 through stage 4 chronic kidney disease, or unspecified chronic kidney disease; J44.1 Chronic obstructive pulmonary disease with (acute) exacerbation; I50.32 Chronic diastolic (congestive) heart failure; E78.5 Hyperlipidemia, unspecified; Z20.822 Contact with and (suspected) exposure to COVID-19; D64.9 Anemia, unspecified; B30.9 Viral conjunctivitis, unspecified; N18.30 Chronic kidney disease, stage 3 unspecified; J98.4 Other disorders of lung; I48.91 Unspecified atrial fibrillation; Z95.0 Presence of cardiac pacemaker; Z88.5 Allergy status to narcotic agent; Z79.82 Long term (current) use of aspirin; Z79.899 Other long term (current) drug therapy; Z90.49 Acquired absence of other specified parts of digestive tract; Z90.89 Acquired absence of other organs
CPT/HCPCS: 36415; 71045; 80048; 80053; 82553; 83880; 84484; 85025; 93005; 94640; 96372; 96374; 96375; 96376; G0378; J0696; J1650; J1940; J2920; J3490; J7512; J7620; U0003; U0005

== ENCOUNTER 2022-02-19 15:19 | Inpatient (IN) | payer MEDICARE ==
[2022-02-19 16:08] LABS: #Eosinphils 0.2 thou/uL (0.0-0.7); #Lymphocytes 0.8 thou/uL (1.20-3.40); #Monocytes 0.7 thou/uL (0.11-0.59); #Neutrophils 3.7 thou/uL (1.40-6.50); %Basophils 0.7 % (0.0-1.0); %Eosinophils 3.9 % (0.0-10.0); %Monocytes 12.3 % (0.0-10.0); %Neutrophils 68.2 % (42.0-75.0); Hemoglobin 9.2 g/dL (12.0-16.0); Mean Corpuscular HGB CONC 33.3 g/dL (32.0-36.0); Mean Corpuscular Hemoglobin 32.6 pg (27.0-31.0); Mean Corpuscular Volume 97.9 fL (78.0-98.0); Mean Platelet Volume 8.6 fL (7.4-10.4); Platelet Count 251 thou/uL (130-400); RBC Distribution Width 12.6 % (11.5-14.5); Red Blood Cell (RBC) Count 2.84 mill/uL (4.20-5.40); White Blood Cell (WBC) Count 5.5 thou/uL (4.8-10.8)
[2022-02-19 16:28] LABS: ALT (SGPT) 15 U/L (8-55); AST (SGOT) 33 U/L (5-34); Albumin 3.8 g/dL (3.4-4.8); Alkaline Phosphatase 105 U/L (40-110); Anion Gap 15 mmol/L (10-20); BUN (Urea Nitrogen) 54 mg/dL (9.8-20.1); Bilirubin, Total 0.3 mg/dL (0.2-1.2); Calc. Creatinine Clearance 0 mL/min (70-130); Calcium 8.8 mg/dL (7.8-10.44); Carbon Dioxide 22 mmol/L (23-31); Chloride 103 mmol/L (98-107); Globulin 2.6 g/dL (2.4-3.5); Glucose 101 mg/dL (83-110); Magnesium 2.2 mg/dL (1.6-2.6); Potassium 4.8 mmol/L (3.5-5.1); Protein, Total 6.4 g/dL (5.8-8.1); Sodium 135 mmol/L (136-145)
[2022-02-19 16:50] LABS: CKMB 1.4 ng/mL (0-6.6)
[2022-02-19] MEDS ORDERED: Piperacillin/Tazobactam 4.5 GM VIAL ONE (17:37)
[2022-02-19 17:47] LABS: Bilirubin Negative (Negative); Blood, Urine Negative (Negative); Clarity Clear (Clear); Glucose, Urine (Dipstick) Normal (Negative); Ketone, Urine Negative (Negative); Leukocyte Negative Leu/uL (Negative); Nitrite Negative (Negative); Protein, Urine (Dipstick) 10 mg/dL (Neg-Trace); Specific Gravity, Urine 1.014 (1.002-1.036); Urobilinogen Normal mg/dL (Less than 2)
[2022-02-19] MEDS ORDERED: Loperamide HCl 2 MG CAP PO PRN (19:48)
[2022-02-19] MEDS ORDERED: Morphine 2 MG/ML VIAL SLOW IVP PRN (19:50)
[2022-02-19] MEDS ORDERED: Sodium Chloride 0.9% 1,000 ML IV SCH (20:00)
[2022-02-19 20:49] LABS: Iron 33 ug/dL (50-170); Iron Binding Capacity, Total 403 mcg/dL (265-497)
[2022-02-19] MEDS: hydrALAZINE 25 MG TAB PO SCH (22:57)
[2022-02-19] MEDS: Aspirin 81 mg Enteric Coated Tablet PO SCH (22:57)
[2022-02-19] MEDS: metroNIDAZOLE 250 MG in Admixture Fee 2 EACH IVPB SCH (22:57)
[2022-02-19] MEDS: Primidone 50 MG TAB PO SCH (22:58)
[2022-02-19] MEDS: Carvedilol 25 MG TAB PO SCH (22:58)
[2022-02-19] MEDS: cloNIDine 0.2 MG TAB PO SCH (22:58)
[2022-02-19] MEDS: Isosorbide Dinitrate 5 MG TAB PO SCH (22:59)
[2022-02-20] MEDS ORDERED: Iron, Sodium Ferric Gluconate 125 MG in Sodium Chloride 0.9% 100 ML IVPB SCH (00:30)
[2022-02-20 06:22] LABS: #Eosinphils 0.2 thou/uL (0.0-0.7); #Lymphocytes 0.6 thou/uL (1.20-3.40); #Monocytes 0.5 thou/uL (0.11-0.59); #Neutrophils 2.5 thou/uL (1.40-6.50); %Basophils 0.9 % (0.0-1.0); %Eosinophils 5.9 % (0.0-10.0); %Lymphocytes 15.4 % (21.0-51.0); %Monocytes 13.8 % (0.0-10.0); %Neutrophils 63.9 % (42.0-75.0); Hemoglobin 8.5 g/dL (12.0-16.0); Mean Corpuscular HGB CONC 33.4 g/dL (32.0-36.0); Mean Corpuscular Hemoglobin 32.9 pg (27.0-31.0); Mean Corpuscular Volume 98.7 fL (78.0-98.0); Mean Platelet Volume 8.1 fL (7.4-10.4); Platelet Count 251 thou/uL (130-400); RBC Distribution Width 12.6 % (11.5-14.5); Red Blood Cell (RBC) Count 2.59 mill/uL (4.20-5.40); White Blood Cell (WBC) Count 3.9 thou/uL (4.8-10.8)
[2022-02-20 06:46] LABS: ALT (SGPT) 11 U/L (8-55); AST (SGOT) 27 U/L (5-34); Albumin 3.2 g/dL (3.4-4.8); Alkaline Phosphatase 90 U/L (40-110); Anion Gap 11 mmol/L (10-20); BUN (Urea Nitrogen) 46 mg/dL (9.8-20.1); Bilirubin, Total 0.2 mg/dL (0.2-1.2); Calc. Creatinine Clearance 16 mL/min (70-130); Calcium 8.3 mg/dL (7.8-10.44); Carbon Dioxide 24 mmol/L (23-31); Chloride 107 mmol/L (98-107); Globulin 2.3 g/dL (2.4-3.5); Glucose 86 mg/dL (83-110); Potassium 4.2 mmol/L (3.5-5.1); Protein, Total 5.5 g/dL (5.8-8.1); Sodium 138 mmol/L (136-145)
[2022-02-20] MEDS: Primidone 50 MG TAB PO SCH ×2 (08:56→20:41)
[2022-02-20] MEDS: hydrALAZINE 25 MG TAB PO SCH ×3 (08:56→20:41)
[2022-02-20] MEDS: Famotidine 20 MG TAB PO SCH (08:56)
[2022-02-20] MEDS: metroNIDAZOLE 250 MG in Admixture Fee 2 EACH IVPB SCH ×3 (08:56→21:40)
[2022-02-20] MEDS: cloNIDine 0.2 MG TAB PO SCH ×2 (08:57→20:40)
[2022-02-20] MEDS: Enoxaparin Sodium 30 MG/0.3 ML SYRINGE SC SCH (08:57)
[2022-02-20] MEDS: Isosorbide Dinitrate 5 MG TAB PO SCH ×3 (08:57→20:40)
[2022-02-20] MEDS: Carvedilol 25 MG TAB PO SCH ×2 (08:57→20:41)
[2022-02-20] MEDS: Iron, Sodium Ferric Gluconate 125 MG in Sodium Chloride 0.9% 100 ML IVPB SCH (09:15)
[2022-02-20] MEDS: Ondansetron PF 4 MG/2 ML Vial IVP PRN ×2 (09:41→21:45)
[2022-02-20] MEDS: traMADol HCl 50 MG TAB PO PRN (15:46)
[2022-02-20 16:13] LABS: SARS-CoV-2 PCR by NAA Not Detected (NotDetected)
[2022-02-20] MEDS: Aspirin 81 mg Enteric Coated Tablet PO SCH (20:41)
[2022-02-20] MEDS: Acetaminophen 325 MG TAB PO PRN (20:46)
[2022-02-20] MEDS ORDERED: Loperamide HCl 2 MG CAP PO PRN (21:22)
[2022-02-21] MEDS: traMADol HCl 50 MG TAB PO PRN (04:26)
[2022-02-21] MEDS: metroNIDAZOLE 250 MG in Admixture Fee 2 EACH IVPB SCH ×2 (05:03→14:49)
[2022-02-21 07:33] LABS: Anion Gap 11 mmol/L (10-20); BUN (Urea Nitrogen) 28 mg/dL (9.8-20.1); Calc. Creatinine Clearance 20 mL/min (70-130); Calcium 8.3 mg/dL (7.8-10.44); Carbon Dioxide 23 mmol/L (23-31); Chloride 110 mmol/L (98-107); Glucose 80 mg/dL (83-110); Hemoglobin 8.5 g/dL (12.0-16.0); Mean Corpuscular HGB CONC 33.3 g/dL (32.0-36.0); Mean Corpuscular Hemoglobin 33.3 pg (27.0-31.0); Mean Platelet Volume 8.5 fL (7.4-10.4); Platelet Count 260 thou/uL (130-400); Potassium 4.4 mmol/L (3.5-5.1); RBC Distribution Width 12.5 % (11.5-14.5); Red Blood Cell (RBC) Count 2.56 mill/uL (4.20-5.40); Sodium 140 mmol/L (136-145); White Blood Cell (WBC) Count 3.8 thou/uL (4.8-10.8)
[2022-02-21 08:35] LABS: Band 12 % (5-11); Eosinophils 5 % (0-10); Lymphocytes 11 % (21-51); MDiff Complete? YES; Macrocytosis SLIGHT = 6-15 cells (100X) (0-5/hpf); Monocytes 11 % (0-10); Neutrophil 53 % (42-75); Platelet Morphology Comment Appears Adequate; Polychromasia SLIGHT = 2-3 cells (100X) (0-2/hpf); Reactive Lymphocytes 7 % (0-10)
[2022-02-21] MEDS: Carvedilol 25 MG TAB PO SCH ×2 (08:41→20:14)
[2022-02-21] MEDS: hydrALAZINE 25 MG TAB PO SCH ×3 (08:41→20:14)
[2022-02-21] MEDS: cloNIDine 0.2 MG TAB PO SCH ×2 (08:41→20:14)
[2022-02-21] MEDS: Iron, Sodium Ferric Gluconate 125 MG in Sodium Chloride 0.9% 100 ML IVPB SCH (08:41)
[2022-02-21] MEDS: Famotidine 20 MG TAB PO SCH (08:41)
[2022-02-21] MEDS: Primidone 50 MG TAB PO SCH ×2 (08:41→20:14)
[2022-02-21] MEDS: Enoxaparin Sodium 30 MG/0.3 ML SYRINGE SC SCH (08:42)
[2022-02-21] MEDS: Isosorbide Dinitrate 5 MG TAB PO SCH ×3 (08:42→20:15)
[2022-02-21] MEDS ORDERED: Furosemide 20 MG/2 ML VIAL SLOW IVP SCH (15:15)
[2022-02-21] MEDS ORDERED: Fluticasone Propionate Nasal Spray 16 gm Bottle NASAL SCH (16:45)
[2022-02-21] MEDS: Ipratropium Bromide 2.5 ml Neb NEB SCH (19:02)
[2022-02-21] MEDS: metroNIDAZOLE 250 MG TAB PO SCH (20:14)
[2022-02-21] MEDS: Aspirin 81 mg Enteric Coated Tablet PO SCH (20:14)
[2022-02-22] MEDS: Ipratropium Bromide 2.5 ml Neb NEB SCH ×5 (02:04→23:07)
[2022-02-22] MEDS: hydrALAZINE 20 MG/ML VIAL SLOW IVP PRN (05:25)
[2022-02-22 06:57] LABS: Anion Gap 11 mmol/L (10-20); BUN (Urea Nitrogen) 23 mg/dL (9.8-20.1); Calc. Creatinine Clearance 19 mL/min (70-130); Calcium 8.7 mg/dL (7.8-10.44); Carbon Dioxide 26 mmol/L (23-31); Chloride 106 mmol/L (98-107); Glucose 78 mg/dL (83-110); Potassium 3.7 mmol/L (3.5-5.1); Sodium 139 mmol/L (136-145)
[2022-02-22 07:42] LABS: Band 9 % (5-11); Eosinophils 5 % (0-10); Hemoglobin 8.6 g/dL (12.0-16.0); Lymphocytes 18 % (21-51); MDiff Complete? YES; Mean Corpuscular HGB CONC 32.8 g/dL (32.0-36.0); Mean Corpuscular Hemoglobin 32.4 pg (27.0-31.0); Mean Corpuscular Volume 98.6 fL (78.0-98.0); Mean Platelet Volume 8.3 fL (7.4-10.4); Monocytes 11 % (0-10); Neutrophil 55 % (42-75); Platelet Count 277 thou/uL (130-400); Platelet Morphology Comment Appears Adequate; RBC Distribution Width 12.6 % (11.5-14.5); RBC Morphology Normal; Red Blood Cell (RBC) Count 2.67 mill/uL (4.20-5.40); White Blood Cell (WBC) Count 3.1 thou/uL (4.8-10.8)
[2022-02-22] MEDS ORDERED: Furosemide 20 MG TAB PO SCH (09:00)
[2022-02-22] MEDS ORDERED: Furosemide 20 MG/2 ML VIAL SLOW IVP SCH (09:00)
[2022-02-22] MEDS: Enoxaparin Sodium 30 MG/0.3 ML SYRINGE SC SCH ×2 (09:16→09:26)
[2022-02-22] MEDS: metroNIDAZOLE 250 MG TAB PO SCH ×3 (09:17→20:51)
[2022-02-22] MEDS: traMADol HCl 50 MG TAB PO PRN ×2 (09:17→20:51)
[2022-02-22] MEDS: Fish Oil 1,000 MG CAP PO SCH (09:17)
[2022-02-22] MEDS: cloNIDine 0.2 MG TAB PO SCH ×2 (09:18→20:53)
[2022-02-22] MEDS: Famotidine 20 MG TAB PO SCH (09:18)
[2022-02-22] MEDS: Carvedilol 25 MG TAB PO SCH ×2 (09:19→20:54)
[2022-02-22] MEDS: Multivit, Therapeutic 1 TAB PO SCH (09:19)
[2022-02-22] MEDS: hydrALAZINE 25 MG TAB PO SCH ×3 (09:19→20:54)
[2022-02-22] MEDS: Isosorbide Dinitrate 5 MG TAB PO SCH ×3 (09:19→20:55)
[2022-02-22] MEDS: Fenofibrate Nanocrystallized 145 MG TAB PO SCH (09:19)
[2022-02-22] MEDS: Primidone 50 MG TAB PO SCH ×2 (09:19→21:01)
[2022-02-22] MEDS: Fluticasone Propionate Nasal Spray 16 gm Bottle NASAL SCH (09:20)
[2022-02-22] MEDS ORDERED: Loperamide HCl 2 MG CAP PO PRN (09:42)
[2022-02-22] MEDS: Acetaminophen 325 MG TAB PO PRN (14:47)
[2022-02-22] MEDS: Aspirin 81 mg Enteric Coated Tablet PO SCH (20:53)
[2022-02-22] MEDS ORDERED: Enoxaparin Sodium 30 MG/0.3 ML SYRINGE SC SCH (21:00)
[2022-02-23 00:49] LABS: Hemoglobin 9.2 g/dL (12.0-16.0); Mean Corpuscular HGB CONC 33.4 g/dL (32.0-36.0); Mean Corpuscular Hemoglobin 32.9 pg (27.0-31.0); Mean Corpuscular Volume 98.5 fL (78.0-98.0); Mean Platelet Volume 8.1 fL (7.4-10.4); Platelet Count 281 thou/uL (130-400); RBC Distribution Width 12.5 % (11.5-14.5); Red Blood Cell (RBC) Count 2.78 mill/uL (4.20-5.40); White Blood Cell (WBC) Count 4.3 thou/uL (4.8-10.8)
[2022-02-23 00:54] LABS: INR-International Normal Ratio 1.3; Prothrombin Time 16.1 sec (12.0-14.7)
[2022-02-23 00:55] LABS: PTT 67.5 sec (22.9-36.1)
[2022-02-23 01:03] LABS: Band 2 % (5-11); Eosinophils 4 % (0-10); Lymphocytes 15 % (21-51); MDiff Complete? YES; Monocytes 18 % (0-10); Neutrophil 61 % (42-75)
[2022-02-23 01:07] LABS: ALT (SGPT) 11 U/L (8-55); AST (SGOT) 25 U/L (5-34); Albumin 3.5 g/dL (3.4-4.8); Alkaline Phosphatase 93 U/L (40-110); Anion Gap 13 mmol/L (10-20); BUN (Urea Nitrogen) 22 mg/dL (9.8-20.1); Bilirubin, Total 0.3 mg/dL (0.2-1.2); Calc. Creatinine Clearance 17 mL/min (70-130); Calcium 8.7 mg/dL (7.8-10.44); Carbon Dioxide 27 mmol/L (23-31); Chloride 102 mmol/L (98-107); Globulin 2.3 g/dL (2.4-3.5); Glucose 97 mg/dL (83-110); Lipase 26 U/L (8-78); Magnesium 1.8 mg/dL (1.6-2.6); Potassium 3.8 mmol/L (3.5-5.1); Protein, Total 5.8 g/dL (5.8-8.1); Sodium 138 mmol/L (136-145)
[2022-02-23 01:09] LABS: Troponin I 0.054 ng/mL (< 0.028)
[2022-02-23] MEDS ORDERED: Sodium Chloride 0.9% 1,000 ML IV SCH (02:15)
[2022-02-23 03:46] LABS: Anion Gap 15 mmol/L (10-20); BUN (Urea Nitrogen) 21 mg/dL (9.8-20.1); Calc. Creatinine Clearance 18 mL/min (70-130); Calcium 8.9 mg/dL (7.8-10.44); Carbon Dioxide 26 mmol/L (23-31); Chloride 101 mmol/L (98-107); Glucose 93 mg/dL (83-110); Magnesium 1.8 mg/dL (1.6-2.6); Potassium 3.5 mmol/L (3.5-5.1); Sodium 138 mmol/L (136-145)
[2022-02-23 03:49] LABS: Troponin I 0.054 ng/mL (< 0.028)
[2022-02-23 03:51] LABS: Hemoglobin 9.9 g/dL (12.0-16.0); Mean Corpuscular Hemoglobin 33.5 pg (27.0-31.0); Mean Corpuscular Volume 98.5 fL (78.0-98.0); Mean Platelet Volume 8.1 fL (7.4-10.4); Platelet Count 311 thou/uL (130-400); RBC Distribution Width 12.8 % (11.5-14.5); Red Blood Cell (RBC) Count 2.95 mill/uL (4.20-5.40); White Blood Cell (WBC) Count 4.4 thou/uL (4.8-10.8)
[2022-02-23 04:40] LABS: Band 4 % (5-11); Eosinophils 4 % (0-10); Lymphocytes 20 % (21-51); MDiff Complete? YES; Monocytes 14 % (0-10); Myelocyte 1 % (0-0); Neutrophil 55 % (42-75); Reactive Lymphocytes 1 % (0-10)
[2022-02-23] MEDS: Ipratropium Bromide 2.5 ml Neb NEB SCH ×3 (07:46→18:48)
[2022-02-23] MEDS: Isosorbide Dinitrate 5 MG TAB PO SCH ×3 (08:59→20:25)
[2022-02-23] MEDS: traMADol HCl 50 MG TAB PO PRN ×2 (09:00→15:47)
[2022-02-23] MEDS: Carvedilol 25 MG TAB PO SCH (09:00)
[2022-02-23] MEDS: Fenofibrate Nanocrystallized 145 MG TAB PO SCH (09:00)
[2022-02-23] MEDS: metroNIDAZOLE 250 MG TAB PO SCH ×3 (09:00→20:25)
[2022-02-23] MEDS: Primidone 50 MG TAB PO SCH ×2 (09:00→20:25)
[2022-02-23] MEDS: Famotidine 20 MG TAB PO SCH (09:00)
[2022-02-23] MEDS: hydrALAZINE 25 MG TAB PO SCH ×3 (09:01→20:24)
[2022-02-23] MEDS: cloNIDine 0.2 MG TAB PO SCH ×2 (09:09→20:25)
[2022-02-23] MEDS: Fish Oil 1,000 MG CAP PO SCH (10:28)
[2022-02-23] MEDS: Multivit, Therapeutic 1 TAB PO SCH (10:28)
[2022-02-23] MEDS: Saccharomyces boulardii 250 MG CAP PO SCH (10:28)
[2022-02-23] MEDS: Fluticasone Propionate Nasal Spray 16 gm Bottle NASAL SCH (12:08)
[2022-02-23] MEDS ORDERED: cloNIDine 0.1 MG TAB PO PRN (16:14)
[2022-02-23] MEDS ORDERED: Electrolyte Replacement Protocol 1 EACH FS SCH (19:00)
[2022-02-23] MEDS: Ondansetron PF 4 MG/2 ML Vial IVP PRN (19:24)
[2022-02-23] MEDS: hydrALAZINE 20 MG/ML VIAL SLOW IVP PRN (19:24)
[2022-02-23] MEDS ORDERED: Carvedilol 25 MG TAB PO SCH (19:30)
[2022-02-23] MEDS ORDERED: Magnesium 2 GM/50 ML(in water) 2 GM in Premix Bag 1 BAG IVPB SCH (19:30)
[2022-02-23] MEDS: Aspirin 81 mg Enteric Coated Tablet PO SCH (20:24)
[2022-02-23] MEDS: Enoxaparin Sodium 40 MG/0.4 ML SYRINGE SC SCH (20:25)
[2022-02-23] MEDS ORDERED: Melatonin 3 MG TAB PO SCH (21:00)
[2022-02-24] MEDS: Ipratropium Bromide 2.5 ml Neb NEB SCH ×5 (01:59→23:22)
[2022-02-24 04:29] LABS: Albumin 3.2 g/dL (3.4-4.8); Anion Gap 11 mmol/L (10-20); BUN (Urea Nitrogen) 17 mg/dL (9.8-20.1); Calc. Creatinine Clearance 23 mL/min (70-130); Calcium 8.1 mg/dL (7.8-10.44); Carbon Dioxide 25 mmol/L (23-31); Chloride 105 mmol/L (98-107); Glucose 97 mg/dL (83-110); Magnesium 2.4 mg/dL (1.6-2.6); Phosphorus 2.2 mg/dL (2.3-4.7); Potassium 3.1 mmol/L (3.5-5.1); Sodium 138 mmol/L (136-145)
[2022-02-24] MEDS ORDERED: Magnesium 2 GM/50 ML(in water) 2 GM in Premix Bag 1 BAG IVPB SCH (05:00)
[2022-02-24 05:22] LABS: Band 13 % (5-11); Eosinophils 3 % (0-10); Hemoglobin 9.1 g/dL (12.0-16.0); Lymphocytes 18 % (21-51); MDiff Complete? YES; Mean Corpuscular HGB CONC 34.1 g/dL (32.0-36.0); Mean Corpuscular Hemoglobin 33.2 pg (27.0-31.0); Mean Corpuscular Volume 97.6 fL (78.0-98.0); Mean Platelet Volume 7.7 fL (7.4-10.4); Monocytes 10 % (0-10); Neutrophil 53 % (42-75); Platelet Count 272 thou/uL (130-400); RBC Distribution Width 12.6 % (11.5-14.5); Red Blood Cell (RBC) Count 2.74 mill/uL (4.20-5.40); White Blood Cell (WBC) Count 3.6 thou/uL (4.8-10.8)
[2022-02-24] MEDS ORDERED: Potassium Chloride 20 MEQ TAB PO SCH ×2 (06:00)
[2022-02-24] MEDS ORDERED: Potassium Phosphate 15 MMOL in Sodium Chloride 0.9% 250 ML 250 ML IVPB SCH (07:45)
[2022-02-24] MEDS: Fish Oil 1,000 MG CAP PO SCH (08:54)
[2022-02-24] MEDS: cloNIDine 0.2 MG TAB PO SCH ×2 (08:54→20:48)
[2022-02-24] MEDS: Isosorbide Dinitrate 5 MG TAB PO SCH ×3 (08:57→20:47)
[2022-02-24] MEDS: Saccharomyces boulardii 250 MG CAP PO SCH (08:58)
[2022-02-24] MEDS: hydrALAZINE 25 MG TAB PO SCH ×3 (08:58→20:45)
[2022-02-24] MEDS: Fenofibrate Nanocrystallized 145 MG TAB PO SCH (08:58)
[2022-02-24] MEDS: Famotidine 20 MG TAB PO SCH (08:58)
[2022-02-24] MEDS: Multivit, Therapeutic 1 TAB PO SCH (08:58)
[2022-02-24] MEDS: metroNIDAZOLE 250 MG TAB PO SCH ×3 (08:58→20:47)
[2022-02-24] MEDS: Carvedilol 25 MG TAB PO SCH ×2 (08:59→16:16)
[2022-02-24] MEDS: Primidone 50 MG TAB PO SCH ×2 (08:59→20:48)
[2022-02-24] MEDS: Fluticasone Propionate Nasal Spray 16 gm Bottle NASAL SCH (11:00)
[2022-02-24 15:14] VITALS: BMI 17.1
[2022-02-24] MEDS: Aspirin 81 mg Enteric Coated Tablet PO SCH (20:44)
[2022-02-24] MEDS: Enoxaparin Sodium 40 MG/0.4 ML SYRINGE SC SCH (20:44)
[2022-02-24] MEDS: traMADol HCl 50 MG TAB PO PRN (20:54)
[2022-02-24] MEDS ORDERED: Melatonin 3 MG TAB PO PRN (22:47)
[2022-02-25 05:30] LABS: Anion Gap 12 mmol/L (10-20); BUN (Urea Nitrogen) 18 mg/dL (9.8-20.1); Calc. Creatinine Clearance 20 mL/min (70-130); Calcium 8.3 mg/dL (7.8-10.44); Carbon Dioxide 24 mmol/L (23-31); Chloride 106 mmol/L (98-107); Glucose 82 mg/dL (83-110); Potassium 4.5 mmol/L (3.5-5.1); Sodium 137 mmol/L (136-145)
[2022-02-25 05:31] LABS: Hemoglobin 9.1 g/dL (12.0-16.0); Mean Corpuscular HGB CONC 34.1 g/dL (32.0-36.0); Mean Corpuscular Hemoglobin 33.3 pg (27.0-31.0); Mean Corpuscular Volume 97.7 fL (78.0-98.0); Mean Platelet Volume 8.4 fL (7.4-10.4); Platelet Count 294 thou/uL (130-400); RBC Distribution Width 12.8 % (11.5-14.5); Red Blood Cell (RBC) Count 2.72 mill/uL (4.20-5.40); White Blood Cell (WBC) Count 4.2 thou/uL (4.8-10.8)
[2022-02-25 05:34] LABS: CRP (Inflammatory) 1.49 mg/dL (= or < 0.5); Magnesium 2.2 mg/dL (1.6-2.6)
[2022-02-25 06:05] LABS: Band 2 % (5-11); Eosinophils 2 % (0-10); Lymphocytes 24 % (21-51); MDiff Complete? YES; Monocytes 21 % (0-10); Neutrophil 51 % (42-75)
[2022-02-25] MEDS: Ipratropium Bromide 2.5 ml Neb NEB SCH ×2 (07:46→12:32)
[2022-02-25] MEDS: Carvedilol 25 MG TAB PO SCH ×2 (09:25→16:42)
[2022-02-25] MEDS: cloNIDine 0.2 MG TAB PO SCH (09:26)
[2022-02-25] MEDS: Famotidine 20 MG TAB PO SCH (09:27)
[2022-02-25] MEDS: Fenofibrate Nanocrystallized 145 MG TAB PO SCH (09:28)
[2022-02-25] MEDS: Fish Oil 1,000 MG CAP PO SCH (09:28)
[2022-02-25] MEDS: Multivit, Therapeutic 1 TAB PO SCH (09:28)
[2022-02-25] MEDS: Saccharomyces boulardii 250 MG CAP PO SCH (09:28)
[2022-02-25] MEDS: hydrALAZINE 25 MG TAB PO SCH ×2 (09:30→15:48)
[2022-02-25] MEDS: Primidone 50 MG TAB PO SCH (09:30)
[2022-02-25] MEDS: Fluticasone Propionate Nasal Spray 16 gm Bottle NASAL SCH (09:31)
[2022-02-25] MEDS: Isosorbide Dinitrate 5 MG TAB PO SCH ×2 (09:38→15:48)
[2022-02-25] MEDS: metroNIDAZOLE 250 MG TAB PO SCH ×2 (09:38→15:48)
[2022-02-25 16:47] VITALS: BP 176/68; TEMP 97.5
== END 2022-02-25 18:55 | disposition home health service (06) | DRG 391 ==
LOC: ERS 15:19 → T4-A 17:56 → IMCU/EMU 02-23 03:03 → NEURO 02-24 19:20
PROVIDERS: ADMIT Internal Medicine; ATTEND Internal Medicine
PROC: 4B02XTZ Measurement of Cardiac Defibrillator, External Approach (ICD-10-PCS; principal; 2022-02-23)
DX: K57.32 Diverticulitis of large intestine without perforation or abscess without bleeding (principal); E43 Unspecified severe protein-calorie malnutrition; I42.8 Other cardiomyopathies; I50.22 Chronic systolic (congestive) heart failure; N18.4 Chronic kidney disease, stage 4 (severe); I13.0 Hypertensive heart and chronic kidney disease with heart failure and stage 1 through stage 4 chronic kidney disease, or unspecified chronic kidney disease; N17.9 Acute kidney failure, unspecified; I48.20 Chronic atrial fibrillation, unspecified; Z68.1 Body mass index [BMI] 19.9 or less, adult; E86.0 Dehydration; I11.0 Hypertensive heart disease with heart failure; D63.1 Anemia in chronic kidney disease; I48.91 Unspecified atrial fibrillation; E83.42 Hypomagnesemia; R07.89 Other chest pain; E87.6 Hypokalemia; E83.39 Other disorders of phosphorus metabolism; Z79.01 Long term (current) use of anticoagulants; Z95.810 Presence of automatic (implantable) cardiac defibrillator; Z88.5 Allergy status to narcotic agent; Z79.82 Long term (current) use of aspirin; Z79.899 Other long term (current) drug therapy; Z79.51 Long term (current) use of inhaled steroids; Z90.49 Acquired absence of other specified parts of digestive tract; Z90.89 Acquired absence of other organs
CPT/HCPCS: 36415; 71045; 74176; 80048; 80053; 80069; 81003; 82553; 83540; 83550; 83605; 83690; 83735; 83880; 84484; 85025; 85610; 85730; 86140; 86850; 86870; 86900; 86901; 86905; 86922; 87045; 87046; 87081; 87324; 87427; 87449; 93005; 93010; 94640; 96365; J0360; J1650; J1940; J1956; J2405; J2543; J2916; J3475; J3490; J7050; J7620; U0003; U0005

== ENCOUNTER 2022-04-21 15:31 | Outpatient (CLI) | payer MEDICARE | END 2022-04-21 15:32 | disposition home or self-care (01) | LOC: BICRAD 15:31 | PROVIDERS: ATTEND Physician Assistant Medical | DX: K59.00 Constipation, unspecified (principal); R94.6 Abnormal results of thyroid function studies; R63.0 Anorexia; R63.4 Abnormal weight loss | CPT/HCPCS: 71046 ==

== ENCOUNTER 2022-05-10 08:45 | Outpatient (CLI) | payer OTHER | END 2022-05-10 08:46 | disposition home or self-care (01) | LOC: BICCT 08:45 | PROVIDERS: ATTEND Physician Assistant Medical | DX: K59.00 Constipation, unspecified (principal); R94.6 Abnormal results of thyroid function studies; R63.0 Anorexia; R63.4 Abnormal weight loss | CPT/HCPCS: 74176 ==